=== PATIENT | female | born 1985 | race Caucasian/White ===

== ENCOUNTER 2019-01-21 11:27 | Emergency (ER) | payer BC ==
[2019-01-21 11:36] VITALS: BP 120/80; PULSE 66
[2019-01-21] MEDS ORDERED: Lidocaine 1% 10 ML MDV INJECT ONE (11:48)
--- NOTE | 2019-01-21 13:16 | EDM.PDOC ---
ED HPI GENERAL MEDICAL PROBLEM - General Chief Complaint: Laceration Stated Complaint: LT THUMB LAC Time Seen by Provider: 01/21/19 11:35 Source of Information: Reports: Patient History Limitations: Reports: No Limitations - History of Present Illness INITIAL COMMENTS - FREE TEXT/NARRATIVE: The patient was cutting cabbage today and she cut her left thumb on the dorsal aspect. She cannot fully extend her thumb. She is right handed and her tetanus is up to date. She thinks she cut the tendon. Onset: Sudden Duration: Minutes: Location: Reports: Upper Extremity, Left (Thumb) Quality: Reports: Sharp Severity: Mild Improves with: Reports: Immobilization Worsens with: Reports: Movement Context: Reports: Trauma (Cut her thumb with a kitchen knife) Associated Symptoms: Reports: No Other Symptoms Left Finger-Thumb Pain Score (Numeric/FACES): 2 - Related Data Allergies Allergy/AdvReac Type Severity Reaction Status Date / Time No Known Allergies Allergy Verified 01/21/19 11:37 Home Meds: Home Meds Ascorbic Acid [Vitamin C] 1,000 mg PO DAILY 11/22/15 [History] Ferrous Sulfate, Dried [Iron] 65 mg PO BID 11/22/15 [History] Pnv No.122/Iron/Folic Acid [ Multi Tablet] 1 each PO DAILY 11/22/15 [ History] Vitamin B Complex 1 each PO DAILY 11/22/15 [History] Past Medical History ADMINISTRATIVE SUPPORT MANAGER History: Reports: , Spontaneous Other ADMINISTRATIVE SUPPORT MANAGER History: 6 pregnancies, 4 term deliveries, 2 miscarriages Psychiatric History: Reports: Anxiety, Depression - Past Surgical History HEENT Surgical History: Reports: LASIK, Oral Surgery ED ROS GENERAL - Review of Systems Review Of Systems: See Below Constitutional: Reports: No Symptoms HEENT: Reports: No Symptoms Respiratory: Reports: No Symptoms Cardiovascular: Reports: No Symptoms Endocrine: Reports: No Symptoms GI/Abdominal: Reports: No Symptoms : Reports: No Symptoms Musculoskeletal: Reports: Other (Left thumb laceration) ED EXAM, SKIN/RASH Exam: See Below Exam Limited By: No Limitations General Appearance: Alert, No Apparent Distress Ears: Normal External Exam Nose: Normal Inspection Throat/Mouth: Normal Inspection Head: Atraumatic, Normocephalic Neck: Normal Inspection Respiratory/Chest: No Respiratory Distress Extremities: Other (1cm laceration to the left thumb on the dorsal aspect. Good sensation and capillary refill distally. The extenser tendons is cut. She can extend her thumb but not fully and it is weak.) Neurological: Alert, Oriented, No Motor/Sensory Deficits ED SKIN PROCEDURES - Laceration/Wound Repair Left Digit - 1st (Thumb) Appearance: Subcutaneous, Linear Distal NVT: Neuro & Vascular Intact, Other (extenser tendon laceration) Anesthetic Type: Local Local Anesthesia - Lidocaine (Xylocaine): 1% Plain Skin Prep: Saline Exploration/Debridement/Repair: Wound Explored, In a Bloodless Field, Explored to Base Closed with: Sutures Lac/Wound length In cm: 3 Suture Size: 5-0 Suture Type: Nylon, Interrupted, Simple Tetanus Status Addressed: Yes Complications: No Course - Vital Signs Last Recorded V/S: Last Vital Signs Temp 97.9 F 01/21/19 11:34 Pulse 66 01/21/19 11:34 Resp 18 01/21/19 11:34 BP 120/80 01/21/19 11:34 Pulse Ox 98 01/21/19 11:34 - Orders/Labs/Meds Orders: Active Orders 24 hr Category Date Time Status Durable Medical Equipment for Discharge [DME for Oth 01/21/19 13:41 Ordered Discharge] [COMM] Stat Meds: Medications Discontinued Medications Generic Name Dose Route Start Last Admin Trade Name Freq PRN Reason Stop Dose Admin Lidocaine HCl 10 ml 01/21/19 11:48 01/21/19 12:05 Xylocaine 1% INJECT 01/21/19 11:49 10 ml ONETIME ONE Administration - Re-Assessments/Exams Free Text/Narrative Re-Assessment/Exam: 01/21/19 13:26 She has an extensor tendon laceration. I called Dr Alex in [place] and he can see her Tuesday at 12:30. I will dress the wound and put her in a splint. Departure - Departure Time of Disposition: 13:45 Disposition: Home, Self-Care 01 Condition: Good Clinical Impression: Thumb laceration Qualifiers: Encounter type: initial encounter Damage to nail status: with damage Foreign body presence: without foreign body Laterality: left Qualified Code(s): S61.112A - Laceration without foreign body of left thumb with damage to nail, initial encounter Extensor tendon laceration, finger, open wound Qualifiers: Encounter type: initial encounter Qualified Code(s): S56.429A - Laceration of extensor muscle, fascia and tendon of unspecified finger at forearm level, initial encounter; S61.209A - Unspecified open wound of unspecified finger without damage to nail, initial encounter - Discharge Information *PRESCRIPTION DRUG MONITORING PROGRAM REVIEWED*: No *COPY OF PRESCRIPTION DRUG MONITORING REPORT IN PATIENT TYREE: No Referrals: Matthew James MD [Primary Care Provider] - Anthony Alex MD [Consulting Physician] - 2 Days Forms: ED Department Discharge Additional Instructions: Clean your thumb with warm soapy water 2 times per day and apply antibiotic ointment after. Wear the splint and follow up with Dr [facility] Tuesday at 12:30 Jez time. - My Orders Last 24 Hours: My Active Orders 01/21/19 13:41 Durable Medical Equipment for Discharge [DME for Discharge] [COMM] Stat - Assessment/Plan Last 24 Hours: My Active Orders 01/21/19 13:41 Durable Medical Equipment for Discharge [DME for Discharge] [COMM] Stat
== END 2019-01-21 14:14 | disposition home or self-care (01) ==
LOC: JD.ED 11:27
DX: S56.322A Laceration of extensor or abductor muscles, fascia and tendons of left thumb at forearm level, initial encounter (principal); Z79.899 Other long term (current) drug therapy; W26.0XXA Contact with knife, initial encounter
CPT/HCPCS: 12002; 99282; J2001

== ENCOUNTER 2019-10-11 07:40 | Inpatient (IN) | payer BC ==
[2019-10-11] MEDS ORDERED: Oxytocin 10 Units/1 ML SDV ONE (07:58)
[2019-10-11] MEDS ORDERED: Oxytocin 10 Units/1 ML SDV IM ONE (09:01)
[2019-10-11] MEDS ORDERED: Benzocaine/Menthol 20%-0.5% Spray 56 GM Canister TOP PRN (09:04)
[2019-10-11] MEDS ORDERED: Witch Hazel Medicated Pads 40/Jar TOP PRN (09:04)
[2019-10-11] MEDS ORDERED: Ibuprofen 600 MG Tab PO PRN (09:05)
[2019-10-11] MEDS ORDERED: Methylergonovine 0.2 MG/1 ML Amp IM ONE (09:28)
[2019-10-11] MEDS ORDERED: Methylergonovine 0.2 MG/1 ML Amp ONE (09:29)
--- NOTE | 2019-10-11 10:37 | PCM.LDHP ---
L&D History of Present Illness - General Date of Service: 10/11/19 Admit Problem/Dx: Patient Status Order with Admit Dx/Problem 10/11/19 09:01 Patient Status [ADT] Routine 10/11/19 09:06 Admission Status [Patient Status] [ADT] Routine Admission Diagnosis/Problem Admission Diagnosis/Problem Spontaneous vaginal delivery 10/11/19 10:22 Joe is a 34-year-old 7 now para 5025 white female at 40 and 27 weeks gestational age with an EMI of 10/09/2019 who was admitted on the morning of 2019 in active labor with complete cervical dilation and +3 station with imminent delivery expected. History and physical is dictated after delivery of the . Source of Information: Patient History Limitations: Reports: No Limitations - History of Present Illness Introduction:: Joe is a 34-year-old 7 now para 5025 white female at 40 and 27 weeks gestational age with an EMI of 10/09/2019 who was admitted on the morning of 2019 in active labor with complete cervical dilation and +3 station with imminent delivery expected. History and physical is dictated after delivery of the infant. Is in a squatting position on the baby delivered. Perineum remained intact. Baby weighed 10 lbs. 1 oz., had Apgars of 8 and 9. Nose and mouth bulb suctioned. IV had not been started so patient received 10 units of Pitocin IM after delivery to facilitate increased uterine tone and decreased likelihood of bleeding. The umbilical cord was allowed to pulsate �2-3 minutes then was clamped �2 and cut by the baby's father Zacarias. Baby delivered in a direct occiput anterior position. Center delivered in a Deric presentation, appeared intact and complete and was discarded per patient desire. Umbilical cord had 3 vessels. Cord blood was obtained. Estimated blood loss was 300 mL. Patient did not use anything for labor analgesia. 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 Patient's first visit was on 2018 at 7-0/7 weeks. Ultrasound done at that time confirmed dates. She seen on a very regular basis during the course of the . Her weight gain was from a first weight of 140-176 pounds for 36 pound increase. Fundal height growth was somewhat ahead of schedule and on last evaluation in clinic within the week before delivery she was noted to have a that had an estimated weight of 8 lbs. 14 oz. Baby is in an oblique lie at that time. Patient is group B strep negative. She's had some anxiety during the course of . She declined induction of labor. E- PDS score on 05/24/2019 was 5. Patient has a history macrosomic baby with largest baby being 10 lbs. 14 oz. She also had a history of thrombocytopenia during the course of . Laboratory testing in showed blood to be a positive with negative amylase screen. First hemoglobin was 11.6 g/dL and platelets are 185, 000. She is rubella immune. [employer] B surface antigen and HIV assays were negative. Cleaning and retest her negative. TSH on 09/06/2019 was normal at 1.499. Second trimester laboratory testing showed hemoglobin 11.2 g deciliter platelets are 112,000. Platelet count on 09/06/2019 was 103,000 and hemoglobin was 12.1 at that time. RPR is nonreactive on 03/26/2019 and group B strep screen was negative. Allergies: None Medications: 1. Ferrous sulfate 325 mg by mouth daily 2. vitamins 1 daily orally 3 vitamin D3 125 �g 10 mL 5000 international units close (daily 4. Vitamin C 500 mg per day 5. Magnesium capsules 1 dailydose unknown Past medical history: 1. Normal spontaneous vaginal delivery �4 2. Miscarriage �2. 3. History of anxiety and depression has been on medications in the past 4. History of abnormal Pap smear in 2006normal since that time. Surgical history: 1. Lasix eye surgery 2014 2. [place] tooth extraction 2012 3. Thumb surgery 2018 Family history: Mother and father are alive and reasonably well. Father has hypertension. Half brothers alive and well. One sister and 2 half sisters are alive and well. Paternal grandmother and maternal grandfathers medical history is unknown. Paternal grandmother is alive and well with type 1 diabetes. Paternal grandfather is secondary to alcoholism. No known family history of cancer, bleeding, clotting disorders, anesthesia-related issues. Social history: Patient is . 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 She does not use any significant most alcohol, drugs or tobacco. She has had some college education. Her is Zacarias. Review of systems: In general patient was in labor with complete cervical dilation and having some significant discomfort. After delivery patient had no significant complaints. Skin: Negative Lungs: No infectious symptoms or shortness of breath Cardiovascular: No chest pain or exercise intolerance Breasts: No lumps, changes in size, pain, dimpling, discharge or axillary or supraclavicular concerns. GI: Negative : changes Musculoskeletal: Negative Neurological: Negative In general the patient is well-developed, well-nourished, pleasant female of stated age in no acute distress. Exam done after labor was completed. Skin is warm dry without lesions. HEENT, neck and back within normal limits. Lungs are clear with good breath sounds in all lung vigil. Cardiovascular exam shows regular and rhythm without murmurs. Abdomen is nontender. Uterus is firm and at the umbilicus. Patient has just recently delivered.. Genital status post deliveryno perineal lacerations noted.. Extremities and neurological exam are grossly within normal limits. 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: , Spontaneous Other OB/BYN History: 6 pregnancies, 4 term deliveries, 2 miscarriages Psychiatric History: Reports: Anxiety, Depression - Past Surgical History HEENT Surgical History: Reports: LASIK, Oral Surgery Social & Family History - Caffeine Use Caffeine Use: Reports: Coffee H&P Review of Systems - Review of Systems: Review Of Systems: See Below L&D Exam - Exam Exam: See Below - Vital Signs Vital Signs: Last Vital Signs Temp Pulse 75 10/11/19 09:00 Resp BP 113/71 10/11/19 09:00 Pulse Ox - Patient Data Lab Results Last 24 hrs: Laboratory Results - last 24 hr 10/11/19 Range/Units 09:12 WBC 10.21 H (3.98-10.04) K/mm3 RBC 4.16 (3.98-5.22) M/mm3 Hgb 12.4 (11.2-15.7) gm/dl Hct 38.6 (34.1-44.9) % MCV 92.8 (79.4-94.8) fl MCH 29.8 (25.6-32.2) pg MCHC 32.1 L (32.2-35.5) g/dl RDW Std Deviation 45.4 (36.4-46.3) fL Plt Count 102 L (182-369) K/mm3 MPV 11.9 (9.4-12.3) fl Neut % (Auto) 85.7 H (34.0-71.1) % Lymph % (Auto) 9.0 L (19.3-51.7) % [place] % (Auto) 4.9 (4.7-12.5) % Eos % (Auto) 0.2 L (0.7-5.8) Baso % (Auto) 0.1 (0.1-1.2) % Neut # (Auto) 8.75 H (1.56-6.13) K/mm3 Lymph # (Auto) 0.92 L (1.18-3.74) K/mm3 [place] # (Auto) 0.50 H (0.24-0.36) K/mm3 Eos # (Auto) 0.02 L (0.04-0.36) K/mm3 Baso # (Auto) 0.01 (0.01-0.08) K/mm3 Manual Slide Review Abnormal smear Result Diagrams: 10/11/19 09:12 Problem List Initiated/Reviewed/Updated: Yes Orders Last 24hrs: Active Orders 24 hr Category Date Time Status Admission Status [Patient Status] [ADT] Routine ADT 10/11/19 09:06 Active Activity as Tolerated [RC] PFP Care 10/11/19 09:01 Active Communication Order [RC] ASDIRECTED Care 10/11/19 09:01 Active Notify Provider [RC] PFP Care 10/11/19 09:01 Active Notify Provider [RC] PRN Care 10/11/19 09:01 Active Vital Signs [RC] 09,15,21,03 Care 10/11/19 09:01 Active Regular Diet [DIET] Diet 10/11/19 Breakfast Active BLOOD BANK HOLD SPECIMEN [BBK] Stat Lab 10/11/19 09:01 Ordered RAPID PLASMA REAGIN,RPR [CHEM] Routine Lab 10/11/19 09:12 Received Benzocaine/Menthol [Dermoplast Pain Relief [place]] Med 10/11/19 09:04 Active 56 gm TOP ASDIRECTED PRN Ibuprofen [Motrin] Med 10/11/19 09:05 Active 600 mg PO Q4H PRN witch Mckenzie [Tucks] Med 10/11/19 09:04 Active 1 pad TOP ASDIRECTED PRN Electronic Heart Tones Ext w TOCO [WOMSER] Oth 10/11/19 09:01 Ordered Routine Electronic Heart Tones Internal [WOMSER] Per Unit Oth 10/11/19 09:01 Ordered Routine Resuscitation Status Routine Resus Stat 10/11/19 09:01 Ordered Medication Orders Benzocaine/Menthol (Dermoplast Pain Relief [place]) 56 gm TOP ASDIRECTED PRN PRN Reason: Perineal Comfort Measure Ibuprofen (Motrin) 600 mg PO Q4H PRN PRN Reason: Pain Witch Mckenzie (Tucks) 1 pad TOP ASDIRECTED PRN PRN Reason: Perineal Comfort Measure Assessment/Plan Comment:: 1.40-2/7 week gestational age �delivered�patient is complete, +3 station, imminent delivery expected upon admission. H&P done after delivery 2. Group B strep negative 3. Patient plans to breast-feed 4. Patient had no intentions of analgesia in labor 5. Patient is rubella immune. 6. Patient received her Tdap on 08/09/2019. Plan: 1. Tylenol and ibuprofen for discomfort. 2. Routine care. 3. Support breast-feeding decision 4. IM Methergine 0.2 mg as patient is having some increased uterine bleeding.
--- NOTE | 2019-10-12 05:39 | PCM.SN.2 ---
- Free Text/Narrative Note: Joe is a 34-year-old 7 now para 5025 white female at 40 and 2/7 weeks gestational age with an EMI of 10/09/2019 who was admitted on the morning of 2019 in active labor with complete cervical dilation and +3 station with imminent delivery expected. Patient went on to deliver in a squatting position at 0811 hrs. on 10/11/2019. She delivered a female infant weighing 4570 g (10 lbs. 1 oz.), with a length of 21.5 inches and scores of 8 and 9. The perineum remained intact with delivery. The patient returned to supine position and baby was placed on her abdomen, dried, nose and mouth were bulb suctioned. Cord blood was obtained. The umbilical cord had 3 vessels. The placenta delivered in a Foy presentation at 0819 hrs. It appeared intact and complete and was discarded per patient desire. Pitocin 10 units IM was given after the delivery to facilitate increasing uterine tone and decrease likelihood of bleeding. No suturing was required as patient's perineum was intact and there were no vaginal lacerations. Estimated blood loss was 300 mL. Patient plans to breast-feed. Condition: Good
--- NOTE | 2019-10-12 05:40 | PCM.SN.2 ---
- Free Text/Narrative Note: note: Patient is doing well in the period. Minimal lochia, voiding well, ambulated without problems. The baby is in level II nursery due to some respiratory concerns. Is on O2 per nasal cannula. Patient is afebrile, vital signs are stable Abdomen is flat, soft, uterus is below the umbilicus and is firm and nontender. Legs are nontender. Assessment: recovery going well. Plan: Routine care. Patient be discharged home within the next 24-48 hours.
--- NOTE | 2019-10-13 07:49 | PCM.DCSUM1 ---
Discharge Summary - Hospital Course Free Text/Narrative:: Joe is a 34-year-old 7 now para 5025 white female at 40 and 2/7 weeks gestational age with an EMI of 10/09/2019 who was admitted on the morning of 2019 in active labor with complete cervical dilation and +3 station with imminent delivery expected. Patient went on to deliver in a squatting position at 0811 hrs. on 10/11/2019. She delivered a female infant weighing 4570 g (10 lbs. 1 oz.), with a length of 21.5 inches and scores of 8 and 9. The perineum remained intact with delivery. The patient returned to supine position and baby was placed on her abdomen, dried, nose and mouth were bulb suctioned. Cord blood was obtained. The umbilical cord had 3 vessels. The placenta delivered in a Foy presentation at 0819 hrs. It appeared intact and complete and was discarded per patient desire. Pitocin 10 units IM was given after the delivery to facilitate increasing uterine tone and decrease likelihood of bleeding. No suturing was required as patient's perineum was intact and there were no vaginal lacerations. Estimated blood loss was 300 mL. Patient plans to breast-feed. patient herself is doing very well. There is had some respiratory concerns with decreased sats and was placed on oxygen per nasal cannula. Baby is doing well and has been weaned off the oxygen. Patient is doing well and would like to be discharged home. Condition: Good Diagnosis: Stroke: No - Discharge Data Discharge Date: 10/13/19 Discharge Disposition: Home, Self-Care 01 Condition: Good - Referral to Home Health Primary Care Physician: Wesley Espana MD - Patient Instructions Diet: Regular Diet as Tolerated (Nursing diet with increased calcium and calories as recommended) Activity: As Tolerated (No intercourse or tampons until bleeding resolves) Driving: May Drive Today Showering/Bathing: May Shower (May take a bath) Notify Provider of: Fever, Increased Pain, Swelling and Redness, Nausea and/or Vomiting - Discharge Plan Home Medications: Home Meds Ascorbic Acid [Vitamin C] 1,000 mg PO DAILY 11/22/15 [History] Ferrous Sulfate, Dried [Iron] 65 mg PO BID 11/22/15 [History] No122/Iron/Folic Acid [ Multi Tablet] 1 each PO DAILY 11/22/15 [History] Vitamin B Complex 1 each PO DAILY 11/22/15 [History] Benzocaine/Menthol [Dermoplast Pain Relief [place]] 56 gm TOP ASDIRECTED PRN canister 10/13/19 [Rx] Ibuprofen [Motrin] 600 mg PO Q4H PRN tablet 10/13/19 [Rx] Referrals: Wesley Espana MD [Primary Care Provider] - (Return to clinic�Dr. Jovi la, nurse practitioner�2 weeks.) - Discharge Summary/Plan Comment DC Time >30 min.: No Discharge Summary/Plan Comment: Discharge instructions: 1. Discharge home 2. Diet, activity and follow-up discussed with patient. Recommend nursing diet with increased calories and calcium. 3. Precautions given concern increased pain, bleeding, temperature, signs/ symptoms of DVT/PE. 4. Medications per home medication was printed, discussed with and given to the patient. 5. Return to clinic-Dr. Espana or [facility] [place] in 2 weeks. Diagnosis: Term -delivered Condition: Good - Patient Data Vitals - Most Recent: Last Vital Signs Temp 36.8 C 10/13/19 06:00 Pulse 71 10/13/19 06:00 Resp 16 10/13/19 06:00 BP 115/63 10/13/19 06:00 Pulse Ox 99 10/13/19 06:00 Weight - Most Recent: 78.925 kg I&O - Last 24 hours: Intake & Output 10/12/19 10/13/19 10/13/19 22:59 06:59 14:59 Intake Total 240 Balance 240 Med Orders - Current: Current Medications Benzocaine/Menthol (Dermoplast Pain Relief [place]) 56 gm TOP ASDIRECTED PRN PRN Reason: Perineal Comfort Measure Last Admin: 10/11/19 10:43 Dose: 1 can Ibuprofen (Motrin) 600 mg PO Q4H PRN PRN Reason: Pain Witch Mckenzie (Tucks) 1 pad TOP ASDIRECTED PRN PRN Reason: Perineal Comfort Measure Last Admin: 10/11/19 10:43 Dose: 1 tub Discontinued Medications Methylergonovine Maleate (Methergine) 0.2 mg IM ONETIME ONE Stop: 10/11/19 09:29 Last Admin: 10/11/19 09:34 Dose: 0.2 mg Methylergonovine Maleate (Methergine) Confirm Administered Dose 0.2 mg .ROUTE .STK-MED ONE Stop: 10/11/19 09:30 Last Admin: 10/11/19 10:43 Dose: Not Given Oxytocin (Pitocin) Confirm Administered Dose 10 unit .ROUTE .STK-MED ONE Stop: 10/11/19 07:59 Last Admin: 10/11/19 09:35 Dose: Not Given Oxytocin (Pitocin) 10 unit IM ONETIME ONE Stop: 10/11/19 09:02 Last Admin: 10/11/19 08:15 Dose: 10 unit
[2019-10-13 09:34] VITALS: BP 111/63; PULSE 66
== END 2019-10-13 11:15 | disposition home or self-care (01) | DRG 560 ==
LOC: JD.OBCHECK 07:40 → JD.OB 08:00 → OBSVTOIN 08:11 → JD.OB 08:31
PROVIDERS: ADMIT Obstetrics & Gynecology; ATTEND Obstetrics & Gynecology
PROC: 10E0XZZ Delivery of Products of Conception, External Approach (ICD-10-PCS; principal; 2019-10-11)
PROC: 10907ZC Drainage of Amniotic Fluid, Therapeutic from Products of Conception, Via Natural or Artificial Opening (ICD-10-PCS; 2019-10-11)
DX: O48.0 Post-term pregnancy (principal); Z37.0 Single live birth; Z3A.40 40 weeks gestation of pregnancy
CPT/HCPCS: 36415; 59025; 59409; 85025; 86592; A9270-GY; J2210; J2590